=== PATIENT | male | born 2000 | race Caucasian/White ===

== ENCOUNTER 2021-01-04 08:01 | Emergency (ER) | payer MEDICAID ==
--- NOTE | 2021-01-04 08:08 | EDM.PDOC ---
ED HPI GENERAL MEDICAL PROBLEM - General Chief Complaint: Neuro Symptoms/Deficits Time Seen by Provider: 01/04/21 08:03 Source of Information: Reports: EMS, Old Records History Limitations: Reports: Other (No verbal DD pt.) - History of Present Illness INITIAL COMMENTS - FREE TEXT/NARRATIVE: Pt arrives from [facility] by ambulance with report of a witness seizure lasting approx. 2 minutes and consisting of generalized jerking movements. After the seizure activity the pt was unresponsive for several minutes with odd deep snorting breathing. Upon arrival of EMS the pt was returning to baseline behavior. Pt is dev. delayed and mostly non-verbal at baseline per EMS. Pt is not able to provide any history. Unclear from old records if pt has Hx of seizures. EMS reports a [facility] staff member reported the pt has a remote seizure Hx but has not had a seizure for years. No known recent illness, fever, or injury. Onset: Today Duration: Resolved Prior to Arrival Location: Reports: Generalized Severity: Moderate Improves with: Reports: None Worsens with: Reports: None Associated Symptoms: Reports: No Other Symptoms - Related Data Allergies Allergy/AdvReac Type Severity Reaction Status Date / Time oxcarbazepine Allergy unknown Verified 01/04/21 08:26 [From Trileptal] Home Meds: Home Meds Cholecalciferol (Vitamin D3) [Vitamin D3] 4,000 units PO DAILY 09/13/20 [History] Magnesium Oxide [Magnesium] 400 mg PO BID 09/13/20 [History] Melatonin 5 mg PO BEDTIME 09/13/20 [History] Multivitamins with Iron/Min [Cerovite Jr] 1 tab PO DAILY 09/13/20 [History] [place]-3/DHA/Epa/Fish Oil [Fish Oil 1,600 mg/5 ml Liquid] 5 ml PO DAILY 09/13/20 [History] Propranolol HCl 40 mg PO TID 09/13/20 [History] Past Medical History Neurological History: Reports: Seizure Other Neuro History: Parents state he has a hx of seizures but has not had one for "many years" and was taken off his seizure med approx. Psychiatric History: Reports: Developmental Delay, Emotional Problems, Learning Disability, Other (See Below) Other Psychiatric History: Severe Intellectual disabilities, Conduct disorders, Mental retardation Social & Family History - Caffeine Use Caffeine Use: Reports: None - Living Situation & Occupation Living situation: Reports: Extended Care Facility ([facility]) ED ROS GENERAL - Review of Systems Review Of Systems: Unable To Obtain Reason Not Obtained: Nonverbal pt. - Physical Exam Exam: See Below Exam Limited By: No Limitations General Appearance: Alert, WD/WN, No Apparent Distress Eye Exam: Bilateral Eye: Normal Inspection Ears: Normal External Exam Nose: Normal Inspection, No Blood Throat/Mouth: Normal Lips, No Airway Compromise. No: Evidence of Tongue Biting Neck: Normal Inspection, Supple, Non-Tender, Full Range of Motion Respiratory/Chest: No Respiratory Distress, Lungs Clear, Normal Breath Sounds, No Accessory Muscle Use, Chest Non-Tender Cardiovascular: Regular Rate, Rhythm GI/Abdominal: Normal Bowel Sounds, Soft, Non-Tender, No Organomegaly, No Distention, No Abnormal Bruit, No Mass Neuro Exam (Abbreviated): Alert, Other (at baseline) Extremities: Normal Inspection Skin Exam: Warm, Dry, No Rash Course - Orders/Labs/Meds Orders: Active Orders 24 hr Category Date Time Status CBC WITH AUTO DIFF [HEME] Stat Lab 01/04/21 08:24 Ordered COMPREHENSIVE METABOLIC PN,CMP [CHEM] Stat Lab 01/04/21 08:24 Ordered CPK [CREATINE KINASE,CK] [CHEM] Stat Lab 01/04/21 08:24 Ordered LACTATE DEHYDROGENASE,LDH [CHEM] Stat Lab 01/04/21 08:24 Ordered - Re-Assessments/Exams Free Text/Narrative Re-Assessment/Exam: 01/04/21 08:35 I spoke to pt's PCP Dr. Cheko Lamar to inform her of the seizure. She agrees to see pt in clinic for ER f/u and refer pt to neurology if indicated. Departure - Departure Time of Disposition: 08:45 Disposition: Home, Self-Care 01 Condition: Good Clinical Impression: Seizure - Discharge Information *PRESCRIPTION DRUG MONITORING PROGRAM REVIEWED*: Not Applicable *COPY OF PRESCRIPTION DRUG MONITORING REPORT IN PATIENT KUSHAL: Not Applicable Instructions: Seizure, Adult Forms: ED Department Discharge Additional Instructions: Follow up in clinic this week or next week with Dr. Merlyn Lamar for a post-ER visit and referral to neurology for further seizure evaluation. Return to ER for any seizures lasting 5 minutes or longer, or any seizures resulting in injury(s). - My Orders Last 24 Hours: My Active Orders 01/04/21 08:24 CBC WITH AUTO DIFF [HEME] Stat COMPREHENSIVE METABOLIC PN,CMP [CHEM] Stat CPK [CREATINE KINASE,CK] [CHEM] Stat LACTATE DEHYDROGENASE,LDH [CHEM] Stat - Assessment/Plan Last 24 Hours: My Active Orders 01/04/21 08:24 CBC WITH AUTO DIFF [HEME] Stat COMPREHENSIVE METABOLIC PN,CMP [CHEM] Stat CPK [CREATINE KINASE,CK] [CHEM] Stat LACTATE DEHYDROGENASE,LDH [CHEM] Stat
[2021-01-04 08:59] LABS: ANION GAP 14.7 mEq/L (7-13); CHLORIDE,CL 102 mmol/L (98-107); SODIUM,NA 141 mmol/L (136-145)
== END 2021-01-04 08:47 | disposition home or self-care (01) ==
LOC: DL.ED 08:01
DX: R56.9 Unspecified convulsions (principal); Z88.8 Allergy status to other drugs, medicaments and biological substances
CPT/HCPCS: 36415; 80053; 82550; 83615; 85025; 99284; 99285

== ENCOUNTER 2021-07-17 07:33 | Emergency (ER) | payer MEDICAID ==
--- NOTE | 2021-07-17 07:37 | EDM.PDOC ---
ED HPI GENERAL MEDICAL PROBLEM - General Chief Complaint: General Stated Complaint: IN BY AMBULANCE Time Seen by Provider: 07/17/21 07:36 Source of Information: Reports: EMS, Old Records, RN, RN Notes Reviewed, Other ([facility] caregiver) History Limitations: Reports: Other (Nonverbal, DD/MR) - History of Present Illness INITIAL COMMENTS - FREE TEXT/NARRATIVE: Pt arrives from [facility] by ambulance with report that care staff was worried that the pt may have had a seizure. No seizure activity was witnessed. The pt is non-verbal and cannot provide any history. Caregiver reports the pt walked out of his room this morning and was "swaying back and forth". They noticed he had a bruise and "goose egg" at the left lateral eyebrow consistent with a minor head injury, but they did not see him fall or bump his head. Because the pt has Hx of seizures, they were worried that he may have had a seizure. Records review reveals the pt is not on any anticonvulsant therapy, and that he has remote Hx of seizures. His last documented seizure was on 01/04/21, and that was his first seizure for many years. Onset: Today, Unknown/Unsure Duration: Resolved Prior to Arrival Location: Reports: Head Severity: Mild Improves with: Reports: None Worsens with: Reports: None Associated Symptoms: Reports: No Other Symptoms - Related Data Allergies Allergy/AdvReac Type Severity Reaction Status Date / Time oxcarbazepine Allergy unknown Verified 07/17/21 07:53 [From Trileptal] Home Meds: Home Meds Cholecalciferol (Vitamin D3) [Vitamin D3] 4,000 units PO DAILY 09/13/20 [History] Magnesium Oxide [Magnesium] 400 mg PO BID 09/13/20 [History] Melatonin 5 mg PO BEDTIME 09/13/20 [History] [place]-3/DHA/Epa/Fish Oil [Fish Oil 1,600 mg/5 ml Liquid] 5 ml PO DAILY 09/13/20 [History] Propranolol HCl 40 mg PO TID 09/13/20 [History] Magnesium Hydroxide [Milk of Magnesia] 30 ml PO DAILY PRN 01/04/21 [History] polyethylene glycoL 3350 [MiraLAX] 17 gm PO DAILY 01/04/21 [History] Cetirizine [ZyrTEC] 10 mg PO DAILY 07/17/21 [History] Multivitamins with Iron/Min [Cerovite Jr] 1 tab PO DAILY 07/17/21 [History] Past Medical History Neurological History: Reports: Seizure Other Neuro History: Parents state he has a hx of seizures but has not had one for "many years" and was taken off his seizure med approx. Psychiatric History: Reports: Developmental Delay, Emotional Problems, Learning Disability, Other (See Below) Other Psychiatric History: Severe Intellectual disabilities, Conduct disorders, Social & Family History - Family History Family Medical History: Unobtainable - Tobacco Use Tobacco Use Status *Q: Never Tobacco User - Caffeine Use Caffeine Use: Reports: None - Alcohol Use Alcohol Use History: No - Recreational Drug Use Recreational Drug Use: No - Living Situation & Occupation Living situation: Reports: Extended Care Facility ([facility]) Occupation: Disabled ED ROS GENERAL - Review of Systems Review Of Systems: Unable To Obtain Reason Not Obtained: Nonverbal pt ED EXAM, GENERAL - Physical Exam Exam: See Below Exam Limited By: No Limitations General Appearance: Alert, No Apparent Distress, Obese Eye Exam: Bilateral Eye: EOMI, Normal Inspection, PERRL Ears: Normal External Exam, Normal Canal (No blood) Nose: Normal Inspection, No Blood Throat/Mouth: Normal Lips, No Airway Compromise Head: Normocephalic, Other (Soft tissue swelling with contusion at left lateral eyebrow, skin intact.) Neck: Normal Inspection, Full Range of Motion Respiratory/Chest: Lungs Clear, Chest Non-Tender Cardiovascular: Regular Rate, Rhythm GI/Abdominal: Normal Bowel Sounds, Soft, Non-Tender Back Exam: Full Range of Motion Extremities: Normal Inspection Neurological: Alert, No Motor/Sensory Deficits (Nonverbal at baseline, no obvious deficits) Psychiatric: Normal Mood Skin Exam: Warm, Dry, Intact Course - Vital Signs Last Recorded V/S: Last Vital Signs Temp 99.3 F 07/17/21 07:41 Pulse 90 07/17/21 07:41 Resp 16 07/17/21 07:41 BP 116/63 07/17/21 07:41 Pulse Ox 94 L 07/17/21 07:41 - Orders/Labs/Meds Labs: Laboratory Tests 07/17/21 07/17/21 Range/Units 07:48 07:48 WBC 10.5 H (5.0-10.0) 10^3/uL RBC 5.06 (4.6-6.2) 10^6/uL Hgb 15.0 (14.0-18.0) g/dL Hct 43.2 (40.0-54.0) % MCV 85.4 (80-100) fL MCH 29.6 (27.0-34.0) pg MCHC 34.7 (33.0-35.0) g/dL Plt Count 310 (150-450) 10^3/uL Neut % (Auto) 80.8 H (42.2-75.2) % Lymph % (Auto) 11.5 L (20.5-50.1) % [place] % (Auto) 7.0 (2-8) % Eos % (Auto) 0.5 L (1.0-3.0) % Baso % (Auto) 0.2 (0.0-1.0) % Sodium 139 (136-145) mmol/L Potassium 4.2 (3.5-5.1) mmol/L Chloride 103 (98-107) mmol/L Carbon Dioxide 26 (21-32) mmol/L Anion Gap 14.2 H (7-13) mEq/L BUN 14 (7-18) mg/dL Creatinine 1.02 (0.70-1.30) mg/dL Est Cr Clr Drug Dosing 117.29 mL/min Estimated GFR (MDRD) > 60 BUN/Creatinine Ratio 13.7 (No establ ref range) Glucose 101 H (70-99) mg/dL Calcium 9.2 (8.5-10.1) mg/dL Total Bilirubin 0.4 (0.2-1.0) mg/dL AST 19 (15-37) U/L ALT 33 (16-63) U/L Alkaline Phosphatase 142 H (46-116) U/L Creatine Kinase 355 H (39-308) U/L Total Protein 7.8 (6.4-8.2) g/dL Albumin 3.9 (3.4-5.0) g/dL Globulin 3.9 Albumin/Globulin Ratio 1.0 Departure - Departure Time of Disposition: 08:14 Disposition: Home, Self-Care 01 Condition: Good Clinical Impression: Contusion of left eyebrow Qualifiers: Encounter type: initial encounter Qualified Code(s): S00.12XA - Contusion of left eyelid and periocular area, initial encounter - Discharge Information *PRESCRIPTION DRUG MONITORING PROGRAM REVIEWED*: Not Applicable *COPY OF PRESCRIPTION DRUG MONITORING REPORT IN PATIENT KUSHAL: Not Applicable Instructions: Facial or Scalp Contusion Forms: ED Department Discharge Additional Instructions: Activity as tolerated. Follow up in clinic with primary physician if any further concerns or any seizure activity. Sepsis Event Note (ED) - Focused Exam Vital Signs: Vital Signs Temp Pulse Resp BP Pulse Ox 07/17/21 07:41 99.3 F 90 16 116/63 94 L
[2021-07-17 08:12] LABS: ANION GAP 14.2 mEq/L (7-13); CHLORIDE,CL 103 mmol/L (98-107); SODIUM,NA 139 mmol/L (136-145)
== END 2021-07-17 08:37 | disposition home or self-care (01) ==
LOC: DL.ED 07:33
DX: S00.12XA Contusion of left eyelid and periocular area, initial encounter (principal); R56.9 Unspecified convulsions; Z88.8 Allergy status to other drugs, medicaments and biological substances; X58.XXXA Exposure to other specified factors, initial encounter
CPT/HCPCS: 36415; 80053; 82550; 85025; 99284

== ENCOUNTER 2021-08-03 07:26 | Emergency (ER) | payer MEDICAID ==
[~2021-08-03 07:26] MED LIST: LORazepam 0.5 MG Tab PO ONE
[2021-08-03] MEDS ORDERED: levETIRAcetam in NaCl (iso-os) 1,500 MG in Premix Bag 1 BAG IV ONE ×2 (07:35)
--- NOTE | 2021-08-03 07:36 | EDM.PDOC ---
ED HPI GENERAL MEDICAL PROBLEM - General Stated Complaint: AMBULANCE Time Seen by Provider: 08/03/21 07:25 Source of Information: Reports: EMS, Old Records, RN, RN Notes Reviewed, Other ([facility] staff worker) History Limitations: Reports: Language Barrier (Nonverbal at baseline d/t cognitive delays) - History of Present Illness INITIAL COMMENTS - FREE TEXT/NARRATIVE: Fran is a 20 y/o male with a history of cognitive delays and seizures, who presents to the ED via [facility] ambulance with his [facility] group director experience for complaints of seizure activity. The patient's healthcare economics manager reports he has experie nced two episodes of seizure-like activity in the past 24 hours, with the most recent occurring approximately 30 minutes prior to his arrival to this facility. She notes he was sitting in a recliner chair watching television when his extremities started to shake and he appeared to be staring off. Per the patient's healthcare economics manager, he has been off of his anti-seizure medications for years, she is uncertain of which medication he used to take. She denies recent falls or head trauma. She denies recent illness, fever, cough, rash, vomiting, or diarrhea. She denies any changes in his diet or medications. The patient does not use tobacco, alcohol, or recreational drugs. - Related Data Allergies Allergy/AdvReac Type Severity Reaction Status Date / Time oxcarbazepine Allergy unknown Verified 07/17/21 07:53 [From Trileptal] Home Meds: Home Meds Cholecalciferol (Vitamin D3) [Vitamin D3] 4,000 units PO DAILY 09/13/20 [History] Magnesium Oxide [Magnesium] 400 mg PO BID 09/13/20 [History] Melatonin 5 mg PO BEDTIME 09/13/20 [History] [place]-3/DHA/Epa/Fish Oil [Fish Oil 1,600 mg/5 ml Liquid] 5 ml PO DAILY 09/13/20 [History] Propranolol HCl 40 mg PO TID 09/13/20 [History] Magnesium Hydroxide [Milk of Magnesia] 30 ml PO DAILY PRN 01/04/21 [History] polyethylene glycoL 3350 [MiraLAX] 17 gm PO DAILY 01/04/21 [History] Cetirizine [ZyrTEC] 10 mg PO DAILY 07/17/21 [History] Multivitamins with Iron/Min [Cerovite Jr] 1 tab PO DAILY 07/17/21 [History] Past Medical History HEENT History: Reports: None Cardiovascular History: Reports: Hypertension Respiratory History: Reports: None Gastrointestinal History: Reports: None Genitourinary History: Reports: None Musculoskeletal History: Reports: None Neurological History: Reports: Seizure Other Neuro History: Parents state he has a hx of seizures but has not had one for "many years" and was taken off his seizure med approx. Psychiatric History: Reports: Developmental Delay, Emotional Problems, Learning Disability, Other (See Below) Other Psychiatric History: Severe Intellectual disabilities, Conduct disorders, non verbal Endocrine/Metabolic History: Reports: Obesity/BMI 30+ Hematologic History: Reports: None Immunologic History: Reports: None Oncologic (Cancer) History: Reports: None Dermatologic History: Reports: None - Past Surgical History Head Surgeries/Procedures: Reports: None Social & Family History - Family History Family Medical History: Unobtainable - Caffeine Use Caffeine Use: Reports: Coffee - Living Situation & Occupation Living situation: Reports: Extended Care Facility ([facility]) Occupation: Disabled ED ROS GENERAL - Review of Systems Review Of Systems: Comprehensive ROS is negative, except as noted in HPI. - Physical Exam Exam: See Below Exam Limited By: Language Barrier (Nonverbal at baseline) General Appearance: Alert, Lethargic (Post-ictal) Eye Exam: Bilateral Eye: EOMI, PERRL (3mm) Ears: Normal External Exam, Hearing Grossly Normal Nose: Normal Inspection, Normal Mucosa, No Blood Throat/Mouth: Normal Inspection, Normal Oropharynx, Normal Voice, No Airway Co mpromise Head Exam: Atraumatic, Normocephalic Neck: Normal Inspection, Supple, Non-Tender, Full Range of Motion. No: Lymphadenopathy (L), Lymphadenopathy (R) Respiratory/Chest: No Respiratory Distress, Lungs Clear, Normal Breath Sounds, No Accessory Muscle Use Cardiovascular: Normal Peripheral Pulses, Regular Rate, Rhythm, No Gallop, No Murmur, No Rub GI/Abdominal: Normal Bowel Sounds, Soft, No Distention, No Abnormal Bruit, No Mass, Pelvis Stable. No: Guarding, Rigid, Rebound (Male) Exam: Deferred Rectal (Males) Exam: Deferred Neuro Exam (Abbreviated): Normal Reflexes, Other (Nonverbal at baseline) Back Exam: Normal Inspection, Full Range of Motion Extremities: Normal Inspection, Normal Range of Motion, Normal Capillary Refill Skin Exam: Warm, Dry, Intact, Normal Color, No Rash. No: Cyanosis, Jaundice, Mottled, Pallor Course - Vital Signs Last Recorded V/S: Last Vital Signs Temp 97.6 F 08/03/21 07:27 Pulse 98 08/03/21 07:27 Resp 16 08/03/21 07:27 BP 144/78 H 08/03/21 07:27 Pulse Ox 100 08/03/21 07:27 - Orders/Labs/Meds Orders: Active Orders 24 hr Category Date Time Status REFLEX LACTIC ACID YES OR NO [CHEM] Routine Lab 08/03/21 08:49 Received UA RFX WIL AND CULT IF INDIC [URIN] Stat Lab 08/03/21 07:26 Ordered Labs: Laboratory Tests 08/03/21 08/03/21 08/03/21 Range/Units 07:56 07:56 07:56 WBC 15.5 H (5.0-10.0) 10^3/uL RBC 5.00 (4.6-6.2) 10^6/uL Hgb 14.8 (14.0-18.0) g/dL Hct 43.4 (40.0-54.0) % MCV 86.8 (80-100) fL MCH 29.6 (27.0-34.0) pg MCHC 34.1 (33.0-35.0) g/dL Plt Count 314 (150-450) 10^3/uL Neut % (Auto) 84.4 H (42.2-75.2) % Lymph % (Auto) 8.0 L (20.5-50.1) % [place] % (Auto) 7.0 (2-8) % Eos % (Auto) 0.4 L (1.0-3.0) % Baso % (Auto) 0.2 (0.0-1.0) % Sodium 141 (136-145) mmol/L Potassium 5.9 H D (3.5-5.1) mmol/L Chloride 104 (98-107) mmol/L Carbon Dioxide 24 (21-32) mmol/L Anion Gap 18.9 H (7-13) mEq/L BUN 15 (7-18) mg/dL Creatinine 0.99 (0.70-1.30) mg/dL Est Cr Clr Drug Dosing TNP Estimated GFR (MDRD) > 60 BUN/Creatinine Ratio 15.2 (No establ ref range) Glucose 94 (70-99) mg/dL Lactic Acid 2.7 H* (0.4-2.0) mmol/L Calcium 9.2 (8.5-10.1) mg/dL Magnesium 2.2 (1.8-2.4) mg/dL Total Bilirubin 0.7 (0.2-1.0) mg/dL AST 50 H (15-37) U/L ALT 35 (16-63) U/L Alkaline Phosphatase 135 H (46-116) U/L Troponin I High Sens 43 (<=76) pg/mL C-Reactive Protein < 0.2 (0.0-0.9) mg/dL Total Protein 7.9 (6.4-8.2) g/dL Albumin 3.9 (3.4-5.0) g/dL Globulin 4.0 Albumin/Globulin Ratio 1.0 Meds: Medications Discontinued Medications Generic Name Dose Route Start Last Admin Trade Name Chipq PRN Reason Stop Dose Admin Levetiracetam 1,500 mg/ Premix 300 mls @ 1,200 mls/hr 08/03/21 07:35 08/03/21 09:02 IV 08/03/21 07:36 1,200 mls/hr ONETIME ONE Administration Lorazepam 0.5 mg 08/03/21 07:25 08/03/21 09:06 Lorazepam 0.5 Mg Tab PO 08/03/21 07:26 Not Given ONETIME ONE - Radiology Interpretation Free Text/Narrative:: [facility] Final Radiology Report Call: [phone] assistance Online chat: [email or web address] Name: FRAN SIMONS Age: 20Years M Date: 08/03/2021 SSN: -- : [id number] Study: CT HEAD WO CONT Requesting Physician: Daria Hernández Images: [id number] Addl Studies: Provided Clinical History: Seizure activity Contrast: Without Contrast Medium: Contrast Amount: Contrast Method: Page 1 of 2 PROCEDURE INFORMATION: Exam: CT Head Without Contrast Exam date and time: 08/03/2021 7:46 AM Age: 20 years old Clinical indication: Other: Seizure activity TECHNIQUE: Imaging protocol: Computed tomography of the head without contrast. Radiation optimization: All CT scans at this facility use at least one of these dose optimization techniques: automated exposure control; mA and/or kV adjustment per patient size (includes targeted exams where dose is matched to clinical indication); or iterative reconstruction. COMPARISON: No relevant prior studies available. FINDINGS: Brain: There is low-density artifact left inferior side of brain. There is no acute intracranial hemorrhage. No extra-axial fluid collection. No evidence of acute infarct. Nolan white differentiation is intact. There is no evidence of mass. There is no mass effect or midline shift. Cerebral ventricles: No ventriculomegaly. Paranasal sinuses: Visualized sinuses are unremarkable. No fluid levels. Mastoid air cells: No significant mastoid effusion. Bones/joints: Nasal septum is deviated to right. Soft tissues: Unremarkable as visualized. Dental: There is unerupted tooth in right maxillary sinus. IMPRESSION: No evidence of acute intracranial abnormality. No acute hemorrhage. No evidence of acute infarct or mass. Thank you for allowing us to participate in the care of your patient. Dictated and Authenticated by: Tamara Peters MD 08/03/2021 8:09 AM Central Time ([place] & [place]) - Re-Assessments/Exams Free Text/Narrative Re-Assessment/Exam: 08/03/21 Findings of examination, lab work, and imaging reviewed with patient's caregiver. Will treat seizure activity with levetiracetam 500mg BID until patient can be evaluated by neurologist. Phone number for patient's prior neurologist, Dr. Langley, provided on discharge paperwork with instructions to follow up in 2-3 days. Supportive cares to avoid seizures discussed. Red flag signs and symptoms which would warrant immediate reevaluation reviewed. Patient's caregiver verbalized understanding and agreement with the plan of care. Departure - Departure Time of Disposition: 09:01 Disposition: DC/Tfer to [facility] Condition: Good Clinical Impression: Seizure-like activity - Discharge Information *PRESCRIPTION DRUG MONITORING PROGRAM REVIEWED*: Not Applicable *COPY OF PRESCRIPTION DRUG MONITORING REPORT IN PATIENT KUSHAL: Not Applicable Instructions: Seizure, Adult Forms: ED Department Discharge Additional Instructions: Rx: levetiracetam 1.) Start Fran's levetiracetam tonight, his first dose was today in the emergency department. 2.) Follow up with Fran's neurologist in 2-3 days regarding today's visit. 3.) Avoid screen-time or flashing lights until otherwise noted by neurology. 4.) Return to the emergency department with any persistent or worsening symptoms despite medications. Sepsis Event Note (ED) - Focused Exam Vital Signs: Vital Signs Temp Pulse Resp BP Pulse Ox 08/03/21 07:27 97.6 F 98 16 144/78 H 100 - My Orders Last 24 Hours: My Active Orders 08/03/21 07:26 UA RFX IWL AND CULT IF INDIC [URIN] Stat 08/03/21 08:49 REFLEX LACTIC ACID YES OR NO [CHEM] Routine - Assessment/Plan Last 24 Hours: My Active Orders 08/03/21 07:26 UA RFX WIL AND CULT IF INDIC [URIN] Stat 08/03/21 08:49 REFLEX LACTIC ACID YES OR NO [CHEM] Routine
--- NOTE | 2021-08-03 08:10 | CT ---
PROCEDURE INFORMATION: Exam: CT Head Without Contrast Exam date and time: 08/03/2021 7:46 AM Age: 20 years old Clinical indication: Other: Seizure activity TECHNIQUE: Imaging protocol: Computed tomography of the head without contrast. Radiation optimization: All CT scans at this facility use at least one of these dose optimization techniques: automated exposure control; mA and/or kV adjustment per patient size (includes targeted exams where dose is matched to clinical indication); or iterative reconstruction. COMPARISON: No relevant prior studies available. FINDINGS: Brain: There is low-density artifact left inferior side of brain. There is no acute intracranial hemorrhage. No extra-axial fluid collection. No evidence of acute infarct. Nolan white differentiation is intact. There is no evidence of mass. There is no mass effect or midline shift. Cerebral ventricles: No ventriculomegaly. Paranasal sinuses: Visualized sinuses are unremarkable. No fluid levels. Mastoid air cells: No significant mastoid effusion. Bones/joints: Nasal septum is deviated to right. Soft tissues: Unremarkable as visualized. Dental: There is unerupted tooth in right maxillary sinus. IMPRESSION: No evidence of acute intracranial abnormality. No acute hemorrhage. No evidence of acute infarct or mass.
[2021-08-03 08:38] LABS: ANION GAP 18.9 mEq/L (7-13); CHLORIDE,CL 104 mmol/L (98-107); SODIUM,NA 141 mmol/L (136-145)
== END 2021-08-03 10:00 ==
LOC: DL.ED 07:26
DX: R25.9 Unspecified abnormal involuntary movements (principal); I10 Essential (primary) hypertension; E66.9 Obesity, unspecified; Z88.8 Allergy status to other drugs, medicaments and biological substances; Z79.899 Other long term (current) drug therapy
CPT/HCPCS: 36415; 70450; 80053; 83605; 83735; 84484; 85025; 86140; 96365; 99285-25; J1953

== ENCOUNTER 2021-10-06 09:04 | Emergency (ER) | payer MEDICAID ==
[2021-10-06] MEDS ORDERED: levETIRAcetam in NaCl (iso-os) 500 MG in Premix Bag 1 BAG IV ONE ×2 (09:12)
--- NOTE | 2021-10-06 09:33 | EDM.PDOC ---
ED HPI GENERAL MEDICAL PROBLEM - General Stated Complaint: AMBULANCE Time Seen by Provider: 10/06/21 09:25 Source of Information: Reports: Other ([facility] Home care provider) History Limitations: Reports: Other (Non verbal) - History of Present Illness INITIAL COMMENTS - FREE TEXT/NARRATIVE: This 20 yo male patient was brought to the ED by [facility] from the [facility] Home due to having 2 seizures in the past 24 hours. The patient's care provider reports that the patient was sitting in a chair watching TV when the seizure started. The care provider reports the patient initially looked like he was stretching, but t hen started generalized "shaking". The seizure episode lasted about 30 seconds. The patient does have a history of seizures (last seizure activity was in July) and is on Keppra (500 mg PO BID). The patient's last dose of Keppra was this morning between 6:30 and 7:00. The patient last saw neurology 1-2 months ago. Onset: Today Duration: Minutes:, Resolved Prior to Arrival Location: Reports: Upper Extremity, Right Quality: Reports: Other Severity: Moderate Improves with: Reports: None Worsens with: Reports: None Context: Reports: Other Associated Symptoms: Reports: Seizure - Related Data Allergies Allergy/AdvReac Type Severity Reaction Status Date / Time oxcarbazepine Allergy unknown Verified 10/06/21 09:35 [From Trileptal] Home Meds: Home Meds Cholecalciferol (Vitamin D3) [Vitamin D3] 4,000 units PO DAILY 09/13/20 [History] Magnesium Oxide [Magnesium] 400 mg PO DAILY 09/13/20 [History] Melatonin 5 mg PO BEDTIME 09/13/20 [History] [place]-3/DHA/Epa/Fish Oil [Fish Oil 1,600 mg/5 ml Liquid] 5 ml PO DAILY 09/13/20 [History] Propranolol HCl 40 mg PO TID 09/13/20 [History] Magnesium Hydroxide [Milk of Magnesia] 30 ml PO DAILY PRN 01/04/21 [History] polyethylene glycoL 3350 [MiraLAX] 17 gm PO DAILY 01/04/21 [History] Cetirizine [ZyrTEC] 10 mg PO DAILY 07/17/21 [History] Multivitamins with Iron/Min [Cerovite Jr] 1 tab PO DAILY 07/17/21 [History] levETIRAcetam [Levetiracetam ER] 500 mg PO BID 10/06/21 [History] Past Medical History HEENT History: Reports: None Cardiovascular History: Reports: Hypertension Respiratory History: Reports: None Gastrointestinal History: Reports: None Genitourinary History: Reports: None Musculoskeletal History: Reports: None Neurological History: Reports: Seizure Other Neuro History: Parents state he has a hx of seizures but has not had one for "many years" and was taken off his seizure med approx. Psychiatric History: Reports: Developmental Delay, Emotional Problems, Learning Disability, Other (See Below) Other Psychiatric History: Severe Intellectual disabilities, Conduct disorders, non verbal Endocrine/Metabolic History: Reports: Obesity/BMI 30+ Hematologic History: Reports: None Immunologic History: Reports: None Oncologic (Cancer) History: Reports: None Dermatologic History: Reports: None - Past Surgical History Head Surgeries/Procedures: Reports: None Social & Family History - Family History Family Medical History: Unobtainable - Caffeine Use Caffeine Use: Reports: None - Living Situation & Occupation Living situation: Reports: Extended Care Facility ([facility]) Occupation: Disabled ED ROS GENERAL - Review of Systems Review Of Systems: Comprehensive ROS is negative, except as noted in HPI. - Physical Exam Exam: See Below Exam Limited By: Other (The patient is non-verbal, but participated in assessment well.) General Appearance: Alert, WD/WN, No Apparent Distress Eye Exam: Bilateral Eye: EOMI, Normal Inspection, PERRL Ears: Normal External Exam, Normal Canal, Hearing Grossly Normal, Normal TMs Nose: Normal Inspection, Normal Mucosa, No Blood Throat/Mouth: Normal Inspection, Normal Lips, Normal Teeth, Normal Gums, Normal Oropharynx, Normal Voice, No Airway Compromise Head Exam: Atraumatic, Normocephalic Neck: Normal Inspection, Supple, Non-Tender, Full Range of Motion Respiratory/Chest: No Respiratory Distress, Lungs Clear, Normal Breath Sounds, No Accessory Muscle Use, Chest Non-Tender Cardiovascular: Normal Peripheral Pulses, Regular Rate, Rhythm, No Edema, No Gallop, No JVD, No Murmur, No Rub GI/Abdominal: Normal Bowel Sounds, Soft, Non-Tender, No Organomegaly, No Distention, No Abnormal Bruit, No Mass, Pelvis Stable, Other (obese) (Male) Exam: Deferred Rectal (Males) Exam: Deferred Neuro Exam (Abbreviated): Alert, CN II-XII Intact, Normal Reflexes, No Motor/Sensory Deficits, Other (Non-verbal, but appears to be relaxed in this environment. ) Back Exam: Normal Inspection, Full Range of Motion Extremities: Normal Inspection, Normal Range of Motion, Non-Tender, No Pedal Edema, Normal Capillary Refill Psychiatric: Normal Affect, Normal Mood Skin Exam: Warm, Dry, Intact, Normal Color, No Rash Course - Vital Signs Last Recorded V/S: Last Vital Signs Temp 98.9 F 10/06/21 09:19 Pulse 88 10/06/21 09:19 Resp 18 10/06/21 09:19 BP 131/72 10/06/21 09:19 Pulse Ox 97 10/06/21 09:19 - Orders/Labs/Meds Orders: Active Orders 24 hr Category Date Time Status LEVETIRACETAM, S [REF] Urgent Lab 10/06/21 09:09 Ordered REFLEX LACTIC ACID YES OR NO [CHEM] Routine Lab 10/06/21 10:10 Received UA RFX WIL AND CULT IF INDIC [URIN] Urgent Lab 10/06/21 09:09 Ordered Labs: Laboratory Tests 10/06/21 10/06/21 10/06/21 Range/Units 09:30 09:30 09:30 WBC 9.3 (5.0-10.0) 10^3/uL RBC 5.15 (4.6-6.2) 10^6/uL Hgb 15.2 (14.0-18.0) g/dL Hct 44.4 (40.0-54.0) % MCV 86.2 (80-100) fL MCH 29.5 (27.0-34.0) pg MCHC 34.2 (33.0-35.0) g/dL Plt Count 266 (150-450) 10^3/uL Neut % (Auto) 70.1 (42.2-75.2) % Lymph % (Auto) 21.1 (20.5-50.1) % [place] % (Auto) 8.1 H (2-8) % Eos % (Auto) 0.5 L (1.0-3.0) % Baso % (Auto) 0.2 (0.0-1.0) % Sodium 143 (136-145) mmol/L Potassium 4.3 D (3.5-5.1) mmol/L Chloride 105 (98-107) mmol/L Carbon Dioxide 24 (21-32) mmol/L Anion Gap 18.3 H (7-13) mEq/L BUN 19 H (7-18) mg/dL Creatinine 0.99 (0.70-1.30) mg/dL Est Cr Clr Drug Dosing 109.42 mL/min Estimated GFR (MDRD) > 60 BUN/Creatinine Ratio 19.2 (No establ ref range) Glucose 98 (70-99) mg/dL Lactic Acid 2.2 H* (0.4-2.0) mmol/L Calcium 9.4 (8.5-10.1) mg/dL Total Bilirubin 0.5 (0.2-1.0) mg/dL AST 22 (15-37) U/L ALT 32 (16-63) U/L Alkaline Phosphatase 131 H (46-116) U/L Total Protein 8.0 (6.4-8.2) g/dL Albumin 4.1 (3.4-5.0) g/dL Globulin 3.9 Albumin/Globulin Ratio 1.1 Meds: Medications Discontinued Medications Generic Name Dose Route Start Last Admin Trade Name Freq PRN Reason Stop Dose Admin Levetiracetam 500 mg/ Premix 100 mls @ 400 mls/hr 10/06/21 09:12 10/06/21 09:25 IV 10/06/21 09:13 400 mls/hr ONETIME ONE Administration Departure - Departure Time of Disposition: 10:35 Disposition: Home, Self-Care 01 Condition: Fair Clinical Impression: Seizure - Discharge Information *PRESCRIPTION DRUG MONITORING PROGRAM REVIEWED*: Not Applicable *COPY OF PRESCRIPTION DRUG MONITORING REPORT IN PATIENT KUSHAL: Not Applicable Instructions: Seizure, Adult, [id number]-lt-[id number] Forms: ED Department Discharge Care Plan Goals: The patient and his caregiver were advised of the examination and lab results during the visit. The patient was given an IV dose of Keppra during the visit. The patient should follow-up with his neurologist next week for continued evaluation and management. If the patient has any additional symptoms or concerns, the patient should either return to the emergency department or visit his primary area facility. Sepsis Event Note (ED) - Focused Exam Vital Signs: Vital Signs Temp Pulse Pulse Resp BP BP Pulse Ox 10/06/21 09:19 98.9 F 88 18 131/72 97 10/06/21 09:15 97 F 78 131/72 - My Orders Last 24 Hours: My Active Orders 10/06/21 09:09 LEVETIRACETAM, S [REF] Urgent UA RFX WIL AND CULT IF INDIC [URIN] Urgent 10/06/21 10:10 REFLEX LACTIC ACID YES OR NO [CHEM] Routine - Assessment/Plan Last 24 Hours: My Active Orders 10/06/21 09:09 LEVETIRACETAM, S [REF] Urgent UA RFX WIL AND CULT IF INDIC [URIN] Urgent 10/06/21 10:10 REFLEX LACTIC ACID YES OR NO [CHEM] Routine
[2021-10-06 10:00] LABS: ANION GAP 18.3 mEq/L (7-13); CHLORIDE,CL 105 mmol/L (98-107); SODIUM,NA 143 mmol/L (136-145)
== END 2021-10-06 10:45 | disposition home or self-care (01) ==
LOC: DL.ED 09:04
DX: R56.9 Unspecified convulsions (principal); I10 Essential (primary) hypertension; E66.9 Obesity, unspecified; Z88.8 Allergy status to other drugs, medicaments and biological substances; Z79.899 Other long term (current) drug therapy; Z68.37 Body mass index [BMI] 37.0-37.9, adult
CPT/HCPCS: 36415; 80053; 80177; 83605; 85025; 96365; 99285; J1953

== ENCOUNTER 2021-11-27 22:10 | Emergency (ER) | payer MEDICAID ==
[2021-11-27] MEDS ORDERED: levETIRAcetam 500 MG Tab PO ONE (22:35)
[2021-11-27 23:21] LABS: CHLORIDE,CL 103 mmol/L (98-107); SODIUM,NA 138 mmol/L (136-145)
== END 2021-11-28 00:23 | disposition home or self-care (01) ==
LOC: DL.ED 22:10
DX: R56.9 Unspecified convulsions (principal); I10 Essential (primary) hypertension; E66.9 Obesity, unspecified; Z68.33 Body mass index [BMI] 33.0-33.9, adult; Z88.8 Allergy status to other drugs, medicaments and biological substances
CPT/HCPCS: 80053; 80177; 85025; 99284; A9270

== ENCOUNTER 2021-12-11 00:03 | Emergency (ER) | payer MEDICAID ==
[~2021-12-11 00:03] MED LIST changes: -LORazepam 0.5 MG Tab PO ONE; +levETIRAcetam in NaCl (iso-os) 500 MG in Premix Bag 1 BAG IV ONE
[2021-12-11 01:26] LABS: ANION GAP 14.9 mEq/L (7-13); CHLORIDE,CL 103 mmol/L (98-107); SODIUM,NA 140 mmol/L (136-145)
== END 2021-12-11 01:28 | disposition home or self-care (01) ==
LOC: DL.ED 00:03
DX: G40.909 Epilepsy, unspecified, not intractable, without status epilepticus (principal); I10 Essential (primary) hypertension; E66.9 Obesity, unspecified; Z68.38 Body mass index [BMI] 38.0-38.9, adult; Z88.8 Allergy status to other drugs, medicaments and biological substances
CPT/HCPCS: 36415; 80053; 85025; 96374; 99282; 99284; J1953